=== PATIENT | male | born 1995 | race Caucasian/White ===

== ENCOUNTER 2017-07-03 09:56 | Inpatient (IN) | payer OTHER ==
[~2017-07-03] VITALS: Ht 170.2 cm; Wt 59.2 kg
[2017-07-03 10:06] VITALS: BP 144/63
--- NOTE | 2017-07-03 10:40 | NUR ---
PATIENT TO RESTROOM AT THIS TIME FOR URINE SPECIMEN.
[2017-07-03 11:20] LABS: BASO % 0.4 % (0.0-1.0); EOS % 0.1 % (1.0-4.0); HEMATOCRIT 38.5 % (42.0-52.0); HEMOGLOBIN 13.3 g/dl (14.0-18.0); LYMPH # 1.5 10*3/uL (1.3-4.4); LYMPH % 18.6 % (27.0-41.0); MEAN CELL VOLUME 88.7 fl (80.0-94.0); MEAN CORPUSCULAR HGB 30.6 pg (27.0-31.0); MEAN CORPUSCULAR HGB CONC 34.5 g/dl (33.0-37.0); MEAN PLATELET VOLUME 8.8 fl (9.6-12.3); MONO # 0.4 10*3/uL (0.1-1.0); MONO % 5.6 % (3.0-9.0); PLATELET COUNT AUTOMATED 319 10*3/uL (130-400); RED BLOOD COUNT 4.34 10*6/uL (4.50-5.90); RED CELL DISTRI WIDTH 13.3 % (0-14.5); WHITE BLOOD COUNT 7.9 10*3/uL (4.8-10.8)
[2017-07-03 11:35] LABS: ACT PARTIAL THROMBO TIME 24.7 SECONDS (20.8-31.5)
[2017-07-03 11:36] LABS: ALBUMIN 4.1 gm/dl (3.1-4.5); ALKALINE PHOSPHATASE 82 U/L (45-117); BUN 7 mg/dl (7-24); CHLORIDE 110 mmol/L (98-107); CREATININE 0.66 mg/dL (0.70-1.30); POTASSIUM 3.5 mmol/L (3.5-5.1); SGOT/AST 88 IU/L (3-35); SGPT/ALT 94 U/L (12-78); SODIUM 140 mmol/L (136-145); TOTAL PROTEIN 8.8 gm/dL (6.4-8.2)
[2017-07-03 11:40] LABS: ETHYL ALCOHOL < 3.0 mg/dl (<3)
--- NOTE | 2017-07-03 12:14 | NUR ---
PATIENT TRANSPORTED TO 5TH FLOOR AT THIS TIME BY DANYEL SINGH. REPORT GIVEN TO CHEPE CAMACHO.
[2017-07-03 12:26] LABS: LIPASE 132 U/L (73-393)
--- NOTE | 2017-07-03 12:30 | NUR ---
22 year old MALE admitted to room # 501 for stabilization. 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 Compliant with admission procedure. Patient denies any anxiety, but is unable to sit still, taps toes to floor continuously, looks about room, unable to focus eyes on nurse during interview. See assessment forms for additional information about patient status.
[2017-07-03 13:00] LABS: BILIRUBIN NEGATIVE (NEGATIVE); BLOOD NEGATIVE (NEGATIVE); CLARITY CLEAR (CLEAR); COLOR YELLOW (YELLOW); GLUCOSE NEGATIVE (NEGATIVE); KETONE NEGATIVE (NEGATIVE); LEUKO ESTERASE NEGATIVE (NEGATIVE); NITRITE NEGATIVE (NEGATIVE); SPECIFIC GRAVITY <= 1.005 (1.005-1.030); UROBILINOGEN 0.2 E.U./dl (0.2-1.0)
[2017-07-03 13:09] LABS: URINE AMPHETAMINES < 1000 (1000ng/ml); URINE BARBITURATES < 200 (200ng/ml); URINE BENZODIAZEPINES < 200 (200ng/ml); URINE CANNABINOIDS (THC) < 50 (50ng/ml); URINE COCAINE < 300 (300ng/ml); URINE METHADONE < 300 (300ng/ml); URINE OPIATES < 300 (300ng/ml); URINE PHENCYCLIDINE < 25 (25ng/ml)
[2017-07-03 13:14] VITALS: BP 132/57
--- NOTE | 2017-07-03 13:20 | NUR ---
PT REPORTS NO HOME MEDS. MED REC UPDATED.
--- NOTE | 2017-07-03 13:42 | NUR ---
PT SEEMS MORE RELAXED AND STATES HIS BACK PAIN HAS LESSENED TO A 5/10. WILL CONT TO MONITOR.
--- NOTE | 2017-07-03 14:45 | NUR ---
BENTYL GIVEN FOR C/O STOMACH CRAMPS, MOTRIN FOR BACK PAIN OF 10/10, ROBAXIN FOR LEG CRAMPS, VISTARIL FOR ANXIETY AND ZOFRAN FOR NAUSEA. WILL CONT TO MONITOR. CALL LIGHT IN REACH.
[2017-07-03 16:00] VITALS: BP 102/49
[2017-07-03 20:00] VITALS: BP 120/57
--- NOTE | 2017-07-03 21:18 | NUR ---
PATIENT STATES EARLIER ROBAXIN WAS INEFFECTIVE FOR RESTLESS LEGS/LEG CRAMPS. PATIENT REQUESTED AND RECEIVED PO VISTARIL, PO REQUIP, AND PO TRAZODONE PER PRN ORDER FOR C/O ANXIETY, RESTLESS LEGS, AND SLEEPLESSNESS. SCHEDULED SL SUBUTEX ALSO ADMINISTERED AT THIS TIME. WILL MONITOR EFFECTIVENESS. CALL LIGHT LEFT IN REACH.
--- NOTE | 2017-07-03 22:06 | NUR ---
EARLIER MEDICATIONS WERE EFFECTIVE PER PATIENT. WILL CONTINUE TO MONITOR.
[2017-07-04] VITALS: BP 102/48
--- NOTE | 2017-07-04 02:36 | NUR ---
PATIENT ASLEEP IN BED AT THIS TIME. RESPIRATIONS EASY. NO S/S OF DISTRESS NOTED. WILL CONTINUE TO MONITOR.
[2017-07-04 04:00] VITALS: BP 127/54
[2017-07-04 08:00] VITALS: BP 126/60
--- NOTE | 2017-07-04 09:29 | NUR ---
PATIENT REQUESTED SOMETHING FOR A COUGH AND NASAL CONGESTION. WILL CONTACT PHYSICIAN.
--- NOTE | 2017-07-04 10:15 | NUR ---
PRN VISTARIL, ROBAXIN, REQUIP, AND MOTRIN WAS EFFECTIVE.
--- NOTE | 2017-07-04 11:00 | NUR ---
DR. MELO NOTIFIED OF PAIENTS REQUEST FOR SOMETHING FOR COUGH AND CONGESTION. SEE NEW ORDERS.
[2017-07-04 12:00] VITALS: BP 119/55
--- NOTE | 2017-07-04 12:00 | NUR ---
PATIENT STATED THAT THE PRESCRIBED PRN MEDICATIONS HELP. VISTARIL WAS GIVEN TO REDUCE ANXIETY. ROBAXIN WAS GIVEN TO CONTROL MUSCLE SPASMS ALONG WITH REQUIP TO REDUCE WRESTLESS LEGS. MOTRIN WAS GIVEN BECAUSE PATIENT STATED THAT HE ACHED ALL OVER. WILL MONITOR.
[2017-07-04 16:00] VITALS: BP 106/52
--- NOTE | 2017-07-04 16:26 | NUR ---
D/C PLANNING: PATIENT WANTS TO FOLLOW-UP WITH COUNSELING FOR HIS AFTERCARE PLAN. [facility] WILL GIVE PATIENT REFERRALS IN HIS AREA. ANJU FOX B.A. FRE[employer]ANCE [employer] STENOGRAPHER
[2017-07-04 20:00] VITALS: BP 129/57
--- NOTE | 2017-07-04 20:16 | NUR ---
PATIENT AWAKE IN BED AT THIS TIME ON TELEPHONE. PATIENT REQUESTING TRAZODONE AND REQUIP TO BE BROUGHT IN WITH PM SUBUTEX DOSE. NO OTHER COMPLAINTS VERBALIZED AT THIS TIME. WILL CONTINUE TO MONITOR. CALL LIGHT LEFT IN REACH.
--- NOTE | 2017-07-04 22:03 | NUR ---
PATIENT MEDICATED WITH PO TRAZODONE AND REQUIP PER PRN ORDER FOR C/O SLEEPLESSNESS AND RESTLESS LEGS. PRN OCEAN NASAL SPRAY ADMINISTERED PER ORDER FOR CONGESTION. PRN NICOTROL INHALER CARTRIDGE ALSO ADMINISTERED. WILL MONITOR EFFECTIVENESS. CALL LIGHT LEFT IN REACH.
[2017-07-05] VITALS: BP 109/58
--- NOTE | 2017-07-05 03:56 | NUR ---
PATIENT ASLEEP IN BED AT THIS TIME. RESPIRATIONS EASY. NO S/S OF DISTRESS NOTED ON ROOM AIR. WILL MONITOR. CALL LIGHT WITHIN REACH.
[2017-07-05 08:00] VITALS: BP 98/50
--- NOTE | 2017-07-05 10:03 | NUR ---
MEDICATED WITH VISTARIL FOR ANXIETY, ROBAXIN FOR LEG CRAMPS AND REQUIP FOR RESTLESS LEGS.
--- NOTE | 2017-07-05 11:00 | NUR ---
Patient resting. Responding to scheduled medications with fewer complaints of pain and anxiety.
[2017-07-05 12:00] VITALS: BP 124/55
--- NOTE | 2017-07-05 15:40 | NUR ---
D/C PLAN: PATIENT IS GOING TO FOLLOW-UP WITH [facility] IN [place], [place] FOR HIS AFTERCARE PLAN. PATIENT AGREES AND UNDERSTANDS HIS AFTERCARE PLAN. ANJU FOX B.A. ANIMAL TRAINER
[2017-07-05 16:00] VITALS: BP 117/61
--- NOTE | 2017-07-05 18:01 | NUR ---
Patient resting. Responding to scheduled medications with fewer complaints of pain and anxiety.
[2017-07-05 20:00] VITALS: BP 131/52
--- NOTE | 2017-07-05 21:49 | NUR ---
PT. C/O ANXIETY,BODY ACHES AND INSOMNIA. ROBAXIN, VISTARIL, TRAZADONE AND MOTRIN GIVEN PER ORDER FOR WITHDRAWL SYMPTOMS.
--- NOTE | 2017-07-05 22:40 | NUR ---
ROBAXIN, MOTRIN, VISTARIL AND TRAZADONE EFFECTIVE FOR BODY ACHES AND ANXIETY AND PT. VERY DROWSY AT THIS TIME.
[2017-07-06] VITALS: BP 101/48
--- NOTE | 2017-07-06 03:31 | NUR ---
24 HR chart check completed.
--- NOTE | 2017-07-06 04:40 | NUR ---
PT RESTING IN BED AT THIS TIME, RESPIRATIONS EASY AND UNLABORED. NO S/S OF DISTRESS. CALL LIGHT IN REACH.
--- NOTE | 2017-07-06 05:39 | NUR ---
REFUSED LAB WORK
[2017-07-06 08:00] VITALS: BP 114/56
--- NOTE | 2017-07-06 08:36 | NUR ---
REFUSED LABS. DR CALDERON MADE AWARE.
[2017-07-06] MEDS ORDERED: ZOFRAN 4 MG ED2 TAB PO (09:54)
[2017-07-06] MEDS ORDERED: ATARAX,VISTARIL50 MG PO (09:54)
--- NOTE | 2017-07-06 10:09 | NUR ---
PT GIVEN BENTYL, IMODIUM, MOTRIN, ZOFRAN AND VISTARIL FOR C/O STOMACH CRAMPS, NAUSEA, ANXIETY, BACK PAIN AND DIARRHEA. WILL CONT TO MONITOR. CALL LIGHT IN REACH.
--- NOTE | 2017-07-06 10:16 | NUR ---
PT DISCHARGED AT THIS TIME. VERBALIZED UNDERSTANDING OF DISCHARGE INSTRUCTIONS. GRANDFATHER HERE TO PICK HIM UP.
== END 2017-07-06 10:16 | disposition home or self-care (01) | DRG 897 ==
LOC: ED 09:56 → 5E 11:40 → EDHOLD 11:40 → 5E 11:59
PROVIDERS: Internal Medicine; Physician Assistant; ADMIT Internal Medicine
DX: F11.23 Opioid dependence with withdrawal (principal); E87.8 Other disorders of electrolyte and fluid balance, not elsewhere classified; F12.10 Cannabis abuse, uncomplicated; D64.9 Anemia, unspecified; F13.10 Sedative, hypnotic or anxiolytic abuse, uncomplicated; G47.00 Insomnia, unspecified; D72.810 Lymphocytopenia; R73.9 Hyperglycemia, unspecified; R74.0 Nonspecific elevation of levels of transaminase and lactic acid dehydrogenase [LDH]; Z71.6 Tobacco abuse counseling; Z72.0 Tobacco use